=== PATIENT | male | born 1945 | race Caucasian/White ===

== ENCOUNTER 2017-06-28 11:02 | Inpatient (IN) | payer MEDICARE, BC ==
[~2017-06-28] VITALS: Ht 170.2 cm; Wt 93.8 kg
[2017-06-28] VITALS (7 sets, daily range): BP systolic 135–175; BP diastolic 78–93; PULSE 60–93; RESP 16–22; TEMP 96.9–98.4; O2SAT 95–99
--- NOTE | 2017-06-28 11:18 | PD ---
HPI Chief Complaint: Abnormal Results Time Seen by Provider: 11:17 Travel History International Travel<30 days: No Contact w/Intl Traveler<30days: No Traveled to known affect area: No History of Present Illness HPI The patient 72 years old. He arrives to the ER with a complaint of low magnesium. He's had diarrhea for about 3 weeks. Associated symptoms include decreased energy generally. Lack of energy and diarrhea seems to be worsening daily. He has a history of similar diarrhea previously. He has a magnesium level of 0.8 based on blood work done yesterday by Dr. Hernandez. He reports previously an arrhythmogenic event accompanied a hypomagnesemic episode and was admitted to [facility] for electrolyte replacement. Denies palpitations/ chest pain/cardiac symptoms in the ED. [facility] Social History Tobacco Use: No Allergies-Medications (Allergen,Severity, Reaction): Coded Allergies: No Known Allergies (Unverified , 06/28/17) Reported Meds & Prescriptions Reported Meds & Active Scripts Active Reported Tamsulosin (Tamsulosin HCl) 0.4 Mg Cap 0.4 Mg HS Rabeprazole (Rabeprazole Sodium) 20 Mg Tab 20 Mg PO DAILY Glimepiride 4 Mg Tab 4 Mg PO BIDAC Temazepam 30 Mg Cap 30 Mg PO HS PRN Eliquis (Apixaban) 5 Mg Tab 5 Mg PO BID Review of Systems Except as stated in HPI: all other systems reviewed are Neg General / Constitutional: No: Fever Physical Exam Narrative GENERAL: Well-nourished well-developed 72-year-old male, no acute distress Vital Signs Date Time Temp Pulse Resp B/P (MAP) Pulse Ox O2 Delivery O2 Flow Rate FiO2 06/28/17 11:26 99 Room Air 06/28/17 11:26 99 Room Air 06/28/17 11:19 99 Room Air 06/28/17 11:07 98.4 93 16 147/93 (111) 98 SKIN: Warm and dry. HEAD: Atraumatic. Normocephalic. EYES: Pupils equal and round. No scleral icterus. No injection or drainage. ENT: No nasal bleeding or discharge. Mucous membranes pink and moist. NECK: Trachea midline. No JVD. CARDIOVASCULAR: Regular rate and rhythm. RESPIRATORY: No accessory muscle use. Clear to auscultation. Breath sounds equal bilaterally. GASTROINTESTINAL: Abdomen soft, non-tender, nondistended. Hepatic and splenic margins not palpable. MUSCULOSKELETAL: Extremities without clubbing, cyanosis, or edema. No obvious deformities. NEUROLOGICAL: Awake and alert. No obvious cranial nerve deficits. Motor grossly within normal limits. Five out of 5 muscle strength in the arms and legs. Normal speech. PSYCHIATRIC: Appropriate mood and affect; insight and judgment normal. Data Data Last Documented VS Vital Signs Date Time Temp Pulse Resp B/P (MAP) Pulse Ox O2 Delivery O2 Flow Rate FiO2 06/28/17 11:26 99 Room Air 06/28/17 11:07 98.4 93 16 147/93 (111) Orders Orders Basic Metabolic Panel (Bmp) (06/28/17 11:24) Complete Blood Count With Diff (06/28/17 11:24) Magnesium (Mg) (06/28/17 11:24) Ecg Monitoring (06/28/17 11:24) Iv Access Insert/Monitor (06/28/17 11:24) Oximetry (06/28/17 11:24) Oxygen Administration (06/28/17 11:24) Sodium Chloride 0.9% Flush (Ns Flush) (06/28/17 11:30) Magnesium Sulfate 1 Gm Premix (Magnesium (06/28/17 11:30) Electrocardiogram (06/28/17 ) Admit To Inpatient (06/28/17 ) Vital Signs (Adult) Q4H (06/28/17 12:09) Neuro Checks Q4H (06/28/17 12:09) Sodium Chloride 0.9% Flush (Ns Flush) (06/28/17 12:15) Sodium Chloride 0.9% Flush (Ns Flush) (06/28/17 21:00) Acetaminophen (Tylenol) (06/28/17 12:15) Basic Metabolic Panel (Bmp) (06/29/17 06:00) Naloxone Inj (Narcan Inj) (06/28/17 12:15) Magnesium (Mg) (06/28/17 15:09) Admit Order (Ed Use Only) (06/28/17 ) Graphic Designer / Telemetry REGI.Q8H (06/28/17 12:12) Vital Signs (Adult) Q4H (06/28/17 12:12) Diet Heart Healthy (06/28/17 Lunch) Activity Oob With Assistance (06/28/17 12:12) Notify Dr: Other (06/28/17 12:12) Labs Laboratory Tests Test 06/28/17 11:40 White Blood Count 8.9 TH/MM3 Red Blood Count 5.21 MIL/MM3 Hemoglobin 13.6 GM/DL Hematocrit 42.3 % Mean Corpuscular Volume 81.2 FL Mean Corpuscular Hemoglobin 26.0 PG Mean Corpuscular Hemoglobin Concent 32.1 % Red Cell Distribution Width 13.6 % Platelet Count 234 TH/MM3 Mean Platelet Volume 9.4 FL Neutrophils (%) (Auto) 55.4 % Lymphocytes (%) (Auto) 35.6 % Monocytes (%) (Auto) 6.6 % Eosinophils (%) (Auto) 1.3 % Basophils (%) (Auto) 1.1 % Neutrophils # (Auto) 4.9 TH/MM3 Lymphocytes # (Auto) 3.2 TH/MM3 Monocytes # (Auto) 0.6 TH/MM3 Eosinophils # (Auto) 0.1 TH/MM3 Basophils # (Auto) 0.1 TH/MM3 CBC Comment DIFF FINAL Differential Comment Blood Urea Nitrogen 16 MG/DL Creatinine 1.50 MG/DL Random Glucose 211 MG/DL Calcium Level 8.4 MG/DL Magnesium Level 0.6 MG/DL Sodium Level 140 MEQ/L Potassium Level 3.8 MEQ/L Chloride Level 111 MEQ/L Carbon Dioxide Level 21.4 MEQ/L Anion Gap 8 MEQ/L Estimat Glomerular Filtration Rate 46 ML/MIN MDM Medical Decision Making Medical Screen Exam Complete: Yes Emergency Medical Condition: Yes Medical Record Reviewed: Yes Differential Diagnosis Dehydration, low magnesium, low potassium Narrative Course 1 g IV magnesium sulfate every hour IV ordered here. The patient will be admitted for IV magnesium replenishment. CBC & BMP Diagram 06/28/17 11:40 Calcium Level 8.4 L, Magnesium Level 0.6 L Case discussed with Dr. Eller at approximately 12:15 PM. EKG shows a sinus rhythm with a rate of 61 w normal axis and intervals Diagnosis Primary Impression: Hypomagnesemia Admitting Information Admitting Physician Requests: Observation Stuart Crespo MD June 28, 2017 11:17
[2017-06-28] MEDS ORDERED: TAMS0.4C4 (11:28)
[2017-06-28] MEDS ORDERED: TEMA30CA PO (11:28)
[2017-06-28] MEDS ORDERED: APIX5TAB PO (11:28)
[2017-06-28] MEDS ORDERED: RABE1TAB PO (11:28)
[2017-06-28] MEDS ORDERED: GLIM4TAB PO (11:28)
[2017-06-28] MEDS ORDERED: SODIUM CHLORIDE 0.9% FLUSH 10 ML FLUSH IVF PRN (11:30)
[2017-06-28] MEDS: MAGNESIUM SULFATE 1 GM PREMIX 100 ML IV SCH ×2 (11:42→12:36)
[2017-06-28 11:47] LABS: AUTOMATED NEUTROPHIL # 4.9 TH/MM3 (1.8-7.7); BASOPHIL # 0.1 TH/MM3 (0-0.2); BASOPHIL % 1.1 % (0.0-2.0); EOSINOPHIL # 0.1 TH/MM3 (0-0.4); EOSINOPHIL % 1.3 % (0.0-4.0); HEMATOCRIT 42.3 % (39.0-51.0); HEMOGLOBIN 13.6 GM/DL (13.0-17.0); LYMPH % 35.6 % (9.0-44.0); LYMPHOCYTE # 3.2 TH/MM3 (1.0-4.8); MEAN CELL VOLUME 81.2 FL (80.0-100.0); MEAN CORPUSCULAR HGB CONC 32.1 % (32.0-36.0); MEAN PLATELET VOLUME 9.4 FL (7.0-11.0); MONO % 6.6 % (0.0-8.0); MONOCYTE # 0.6 TH/MM3 (0-0.9); NEUT % 55.4 % (16.0-70.0); PLATELET COUNT 234 TH/MM3 (150-450); RED BLOOD COUNT 5.21 MIL/MM3 (4.50-5.90); RED CELL DISTRIBUTION WIDTH 13.6 % (11.6-17.2); WHITE BLOOD COUNT 8.9 TH/MM3 (4.0-11.0)
[2017-06-28 11:59] LABS: BICARBONATE 21.4 MEQ/L (21.0-32.0); CALCIUM 8.4 MG/DL (8.5-10.1); MAGNESIUM 0.6 MG/DL (1.5-2.5)
[2017-06-28 12:03] LABS: CREATININE 1.5 MG/DL (0.60-1.30)
[2017-06-28] MEDS ORDERED: SODIUM CHLORIDE 0.9% FLUSH 10 ML FLUSH IV FLUSH PRN (12:15)
[2017-06-28] MEDS ORDERED: ACETAMINOPHEN 325 MG TAB PO PRN (12:15)
[2017-06-28] MEDS ORDERED: NALOXONE HCL 0.4 MG/ML AMP IV PUSH PRN (12:15)
[2017-06-28] MEDS ORDERED: DEXTROSE 50% IN WATER 50 ML VIAL(D50) IV PUSH PRN (13:45)
[2017-06-28] MEDS ORDERED: MAGNESIUM OXIDE 400 MG TAB PO SCH (13:45)
[2017-06-28] MEDS ORDERED: GLUCAGON 1 MG/ML VIAL OTHER PRN (13:45)
[2017-06-28] MEDS ORDERED: LOPERAMIDE HCL 2 MG CAP PO PRN (13:45)
[2017-06-28] MEDS ORDERED: TEMAZEPAM 15 MG CAP PO PRN (13:45)
--- NOTE | 2017-06-28 13:49 | HHI.HP ---
[facility] Service [facility] Primary Care Physician Peter Wick MD Admission Diagnosis HypoMg, Diarrhea Diagnoses: Chief Complaint: Abnormal labs per primary care provider Travel History International Travel<30 Days: No Contact w/Intl Traveler <30 Da: No Traveled to Known Affected Are: No History of Present Illness This patient very pleasant 72-year-old gentleman with a history of arrhythmia in the past secondary to electrolyte disturbance. He comes to the hospital after 3 weeks of diarrhea and after following up with his primary care doctor for generalized malaise. He is found to have hypomagnesemia at 0.8. He was sent to the hospital and here his magnesium is 0.6. Patient's been recommended for further evaluation and treatment. He has had diarrhea for 3 weeks and it has been intermittent. He has not taken any medications for this diarrhea and notes no fevers or chills or abdominal pain. There is no evidence of cardiac arrhythmia on my review. He does take a proton pump inhibitor for several years and has had a history of ulcers in the past without any signs and symptoms of the same at this time. At this time on telemetry his EKG shows normal sinus rhythm. His other labs are unremarkable. Patient's been recommended for further evaluation and treatment in the hospital. Review of Systems Gastrointestinal: COMPLAINS OF: Diarrhea (Intermittent for 3 weeks) Except as stated in HPI: all other systems reviewed are Neg Generalized malaise Past Family Social History Past Medical History History of arrhythmia on Eliquis Diabetes mellitus Dyspepsia with a history of ulcers Benign prostatic hyperplasia Past Surgical History Hernia repair Carpal tunnel Reported Medications Reviewed in the EMR, nothing new Allergies: Coded Allergies: No Known Allergies (Unverified , 06/28/17) Active Ordered Medications Reviewed in the EMR Family History parents of old age at 89 and 95 Social History No current tobacco or alcohol dependency, 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 SKIN: No rashes, ecchymoses or lesions. Cool and dry. HEAD: Atraumatic. Normocephalic. No temporal or scalp tenderness. EYES: Pupils equal round and reactive. Extraocular motions intact. No scleral icterus. No injection or drainage. ENT: Nose without bleeding, purulent drainage or septal hematoma. Throat without erythema, tonsillar hypertrophy or exudate. Uvula midline. Airway patent. NECK: Trachea midline. No JVD or lymphadenopathy. Supple, nontender, no meningeal signs. CARDIOVASCULAR: Regular rate and rhythm without murmurs, gallops, or rubs. RESPIRATORY: Clear to auscultation. Breath sounds equal bilaterally. No wheezes , rales, or rhonchi. GASTROINTESTINAL: Abdomen soft, non-tender, nondistended. No hepato-splenomegaly , or palpable masses. No guarding. MUSCULOSKELETAL: Extremities without clubbing, cyanosis, or edema. No joint tenderness, effusion, or edema noted. No calf tenderness. Negative Homans sign bilaterally. NEUROLOGICAL: Awake and alert. Cranial nerves II through XII intact. Motor and sensory grossly within normal limits. Five out of 5 muscle strength in all muscle groups. Normal speech. Laboratory Laboratory Tests Test 06/28/17 11:40 White Blood Count 8.9 Red Blood Count 5.21 Hemoglobin 13.6 Hematocrit 42.3 Mean Corpuscular Volume 81.2 Mean Corpuscular Hemoglobin 26.0 Mean Corpuscular Hemoglobin Concent 32.1 Red Cell Distribution Width 13.6 Platelet Count 234 Mean Platelet Volume 9.4 Neutrophils (%) (Auto) 55.4 Lymphocytes (%) (Auto) 35.6 Monocytes (%) (Auto) 6.6 Eosinophils (%) (Auto) 1.3 Basophils (%) (Auto) 1.1 Neutrophils # (Auto) 4.9 Lymphocytes # (Auto) 3.2 Monocytes # (Auto) 0.6 Eosinophils # (Auto) 0.1 Basophils # (Auto) 0.1 CBC Comment DIFF FINAL Differential Comment Blood Urea Nitrogen 16 Creatinine 1.50 Random Glucose 211 Calcium Level 8.4 Magnesium Level 0.6 Sodium Level 140 Potassium Level 3.8 Chloride Level 111 Carbon Dioxide Level 21.4 Anion Gap 8 Estimat Glomerular Filtration Rate 46 Result Diagram: 06/28/17 1140 06/28/17 1140 Caprini VTE Risk Assessment Caprini VTE Risk Assessment: Mod/High Risk (score >= 2) VTE Pharm Contraindication: Coagulopathy,INR elevated Caprini Risk Assessment Model Point Value = 1 Point Value = 2 Point Value = 3 Point Value = 5 Age 41-60 Minor surgery BMI > 25 kg/m2 Swollen legs Varicose veins or History of unexplained or recurrent spontaneous Oral contraceptives or hormone replacement Sepsis (< 1 month) Serious lung disease, including pneumonia (< 1 month) Abnormal pulmonary function Acute myocardial infarction Congestive heart failure (< 1 month) History of inflammatory bowel disease Medical patient at bed rest Age 61-74 Arthroscopic surgery Major open surgery (> 45 min) Laparoscopic surgery (> 45 min) Malignancy Confined to bed (> 72 hours) Immobilizing plaster cast Central venous access Age >= 75 History of VTE Family history of VTE Factor V Leiden Prothrombin [id number] Lupus anticoagulant Anticardiolipin antibodies Elevated serum homocysteine Heparin-induced thrombocytopenia Other congenital or acquired thrombophilia Stroke (< 1 month) Elective arthroplasty Hip, pelvis, or leg fracture Acute spinal cord injury (< 1 month) Prophylaxis Regimen Total Risk Factor Score Risk Level Prophylaxis Regimen 0-1 Low Early ambulation 2 Moderate Order ONE of the following: *Sequential Compression Device (SCD) *Heparin 5000 units SQ BID 3-4 Higher Order ONE of the following medications: *Heparin 5000 units SQ TID *Enoxaparin/Lovenox 40 mg SQ daily (WT < 150 kg, CrCl > 30 mL/min) *Enoxaparin/Lovenox 30 mg SQ daily (WT < 150 kg, CrCl > 10-29 mL/min) *Enoxaparin/Lovenox 30 mg SQ BID (WT < 150 kg, CrCl > 30 mL/min) AND/OR *Sequential Compression Device (SCD) 5 or more Highest Order ONE of the following medications: *Heparin 5000 units SQ TID (Preferred with Epidurals) *Enoxaparin/Lovenox 40 mg SQ daily (WT < 150 kg, CrCl > 30 mL/min) *Enoxaparin/Lovenox 30 mg SQ daily (WT < 150 kg, CrCl > 10-29 mL/min) *Enoxaparin/Lovenox 30 mg SQ BID (WT < 150 kg, CrCl > 30 mL/min) AND *Sequential Compression Device (SCD) Assessment and Plan Problem List: (1) DM2 (diabetes mellitus, type 2) ICD Code: E11.9 - Type 2 diabetes mellitus without complications Plan: Patient on Amaryl twice a day, diabetic diet Patient education and follow-up sliding-scale (2) Hypomagnesemia ICD Code: E83.42 - Hypomagnesemia Status: Acute Plan: Continue to replace aggressively Follow-up repeat labs Continue telemetry Physician Certification 2 Midnight Certification Type: Admission for Inpatient Services Order for Inpatient Services The services are ordered in accordance with Medicare regulations or non- Medicare payer requirements, as applicable. In the case of services not specified as inpatient-only, they are appropriately provided as inpatient services in accordance with the 2-midnight benchmark. Estimated LOS (days): 2 2 days is the estimated time the patient will need to remain in the hospital, assuming treatment plan goals are met and no additional complications. Post-Hospital Plan: Home Miya Eller MD June 28, 2017 13:49
[2017-06-28] MEDS ORDERED: GLIMEPIRIDE 4 MG TAB PO SCH (16:00)
[2017-06-28] MEDS: INSULIN ASPART SUPPLEMENTAL SCALE SQ SCH ×2 (16:41→21:00)
[2017-06-28] MEDS ORDERED: TAMSULOSIN HCL 0.4 MG CAP PO SCH (21:00)
[2017-06-28] MEDS ORDERED: FAMOTIDINE 20 MG TAB PO SCH (21:00)
[2017-06-28] MEDS: SODIUM CHLORIDE 0.9% FLUSH 10 ML FLUSH IV FLUSH SCH (21:40)
[2017-06-28] MEDS: APIXABAN 5 MG TABLET PO SCH (21:40)
[2017-06-29] VITALS: BP 133/71; PULSE 64; RESP 20; TEMP 97.4; O2SAT 98
[2017-06-29 04:00] VITALS: BP 159/73; PULSE 70; RESP 22; TEMP 97.2; O2SAT 96
[2017-06-29 05:50] LABS: CALCIUM 8.5 MG/DL (8.5-10.1)
[2017-06-29 05:51] LABS: BICARBONATE 24.7 MEQ/L (21.0-32.0); MAGNESIUM 1.3 MG/DL (1.5-2.5)
[2017-06-29 05:54] LABS: CREATININE 1.5 MG/DL (0.60-1.30)
[2017-06-29] MEDS ORDERED: MAGNESIUM SULFATE 1 GM PREMIX 100 ML IV ONE (07:15)
[2017-06-29 07:30] VITALS: BP 130/74; PULSE 71; RESP 20; TEMP 96.2; O2SAT 97
[2017-06-29] MEDS ORDERED: GLIMEPIRIDE 4 MG TAB PO SCH (08:00)
[2017-06-29] MEDS: INSULIN ASPART SUPPLEMENTAL SCALE SQ SCH ×2 (08:00→12:00)
[2017-06-29] MEDS: SODIUM CHLORIDE 0.9% FLUSH 10 ML FLUSH IV FLUSH SCH (09:19)
[2017-06-29] MEDS: APIXABAN 5 MG TABLET PO SCH (09:19)
[2017-06-29] MEDS ORDERED: FAMO1TAB37 PO (10:28)
--- NOTE | 2017-06-29 10:28 | HHI.DCPOC ---
Discharge Care Plan Diagnosis: (1) Hypomagnesemia (2) DM2 (diabetes mellitus, type 2) Goals to Promote Your Health * To prevent worsening of your condition and complications * To maintain your health at the optimal level Directions to Meet Your Goals Take your medications as prescribed Follow your dietary instruction Follow activity as directed Keep your appointments as scheduled Take your immunizations and boosters as scheduled If your symptoms worsen call your PCP, if no PCP go to Urgent Care Center or Emergency Room Smoking is Dangerous to Your Health. Avoid second hand smoke Call the 24-hour hour crisis hotline for domestic abuse at Miya Eller MD June 29, 2017 10:28
--- NOTE | 2017-06-29 10:45 | HHI.DS ---
Discharge Summary Admission Date June 28, 2017 at 12:12 Discharge Date: June 29, 2017 Admitting Diagnosis HypoMg, Diarrhea (1) DM2 (diabetes mellitus, type 2) ICD Code: E11.9 - Type 2 diabetes mellitus without complications (2) Hypomagnesemia ICD Code: E83.42 - Hypomagnesemia Status: Acute Procedures none Brief History - From Admission This patient very pleasant 72-year-old gentleman with a history of arrhythmia in the past secondary to electrolyte disturbance. He comes to the hospital after 3 weeks of diarrhea and after following up with his primary care doctor for generalized malaise. He is found to have hypomagnesemia at 0.8. He was sent to the hospital and here his magnesium is 0.6. Patient's been recommended for further evaluation and treatment. He has had diarrhea for 3 weeks and it has been intermittent. He has not taken any medications for this diarrhea and notes no fevers or chills or abdominal pain. There is no evidence of cardiac arrhythmia on my review. He does take a proton pump inhibitor for several years and has had a history of ulcers in the past without any signs and symptoms of the same at this time. At this time on telemetry his EKG shows normal sinus rhythm. His other labs are unremarkable. Patient's been recommended for further evaluation and treatment in the hospital. CBC/BMP: 06/28/17 1140 06/29/17 0510 Significant Findings Laboratory Tests Test 06/28/17 11:40 06/28/17 15:08 06/29/17 05:10 Mean Corpuscular Hemoglobin 26.0 PG (27.0-34.0) Creatinine 1.50 MG/DL (0.60-1.30) 1.50 MG/DL (0.60-1.30) Random Glucose 211 MG/DL (74-106) 143 MG/DL (74-106) Calcium Level 8.4 MG/DL (8.5-10.1) Magnesium Level 0.6 MG/DL (1.5-2.5) 1.3 MG/DL (1.5-2.5) Chloride Level 111 MEQ/L (98-107) 111 MEQ/L (98-107) Estimat Glomerular Filtration Rate 46 ML/MIN (>89) 46 ML/MIN (>89) Hospital Course Patient seen and treated for hypomagnesemia which was quite severe requiring IV replacement of magnesium. Patient did well and was discharged home. He was advised to reconsider his long-term use of proton pump inhibitor as this may cause chronic diarrhea. Pt Condition on Discharge: Good Discharge Disposition: Discharge Home Discharge Time: <= 30 minutes Discharge Instructions DIET: Follow Instructions for: As Tolerated, No Restrictions Activities you can perform: Regular-No Restrictions Follow up Referrals: PCP Follow-up - 1 Week New Medications: Famotidine (Pepcid) 20 Mg Tab 20 MG PO BID for Dyspepsia, #60 TAB 0 Refills Continued Medications: Apixaban (Eliquis) 5 Mg Tab 5 MG PO BID for Blood Clot Prevention, #60 TAB 0 Refills Glimepiride (Glimepiride) 4 Mg Tab 4 MG PO BIDAC for Blood Sugar Management, #60 TAB 0 Refills Tamsulosin (Tamsulosin) 0.4 Mg Cap 0.4 MG HS for Manage Prostate Problems, #30 CAP 0 Refills Temazepam (Temazepam) 30 Mg Cap 30 MG PO HS PRN for INSOMNIA, #30 CAP 0 Refills Discontinued Medications: Rabeprazole (Rabeprazole) 20 Mg Tab 20 MG PO DAILY for Reflux, #30 TAB 0 Refills Miya Eller MD June 29, 2017 10:45
[2017-06-29 11:00] VITALS: BP 138/67; PULSE 59; RESP 20; TEMP 96.8; O2SAT 96
--- NOTE | 2017-06-30 12:11 | EKG ---
Date Performed: 06/28/2017 Time Performed: 12:08:00 PTAGE: 72 years EKG: Sinus rhythm NORMAL ECG NO PREVIOUS TRACING DOCTOR: Livia Liz Interpretating Date/Time 06/30/2017 11:59:49
== END 2017-06-29 15:26 | disposition home or self-care (01) | DRG 641 ==
LOC: PHED 11:02 → PHEDA 12:12 → PH3B 13:24
PROVIDERS: ADMIT Hospitalist; ATTEND Hospitalist
DX: E83.42 Hypomagnesemia (principal); E11.9 Type 2 diabetes mellitus without complications; R19.7 Diarrhea, unspecified; N40.0 Benign prostatic hyperplasia without lower urinary tract symptoms; R53.83 Other fatigue; Z79.84 Long term (current) use of oral hypoglycemic drugs; Z79.01 Long term (current) use of anticoagulants
CPT/HCPCS: 80048; 82948; 83735; 85025; 93005; J3475